=== PATIENT | male | born 1980 | race Caucasian/White ===

== ENCOUNTER 2020-09-01 10:34 | Emergency (ER) | payer SELFPAY ==
[2020-09-01] VITALS (11 sets, daily range): BP systolic 145–165; BP diastolic 90–107; PULSE 82–126; RESP 14–24; TEMP 36.8; O2SAT 93–95
--- NOTE | ~2020-09-01 | XR_ITS ---
XR chest 1V portable DATE: 09/01/2020 11:41 INDICATION: Shortness of breath TECHNIQUE: Portable upright AP views on September 01, 2020 at 1135 hours COMPARISON: None FINDINGS: Heart size appears normal. No pulmonary infiltrate or consolidation, pleural effusion or pu lmonary vascular congestion or pneumothorax is detected. IMPRESSION: No active cardiopulmonary disease Reviewed, dictated and finalized at location A. [facility] [employer]
--- NOTE | 2020-09-01 11:17 | ED.DIZZY ---
HPI - Dizziness General Chief Complaint: Dizziness Stated Complaint: DIZZINESS,N/V Time Seen by Provider: 09/01/20 11:03 Source: patient Mode of arrival: ambulatory Limitations: no limitations History of Present Illness HPI Narrative: 40-[facility] with complaints of dizziness, nausea and vomiting. He states shortly afterward he realized he has not been able to smell or taste anything. Patient denies any cough or shortness of breath. He states that the dizziness was like a sensation that he was spinning. He is unable to characterize which way. He states laying in the bed still now he feels only minimal symptoms. 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 Related Data Allergies Allergy/AdvReac Type Severity Reaction Status Date / Time aspirin Allergy Itching Verified 09/01/20 11:06 carbamazepine [From Tegretol] Allergy Swelling Verified 09/01/20 11:07 topiramate [From Topamax] Allergy Other Verified 09/01/20 11:07 Review of Systems Review of Systems: Narrative: CONSTITUTIONAL: Denies fever, chills, or sweats. EYES: Denies visual changes, redness, or discharge. ENT: Denies rhinorrhea, congestion, sore throat, or otalgia. CARDIOVASCULAR: Denies chest pain, palpitations, or edema. RESPIRATORY: Denies cough or dyspnea. GASTROINTESTINAL: Denies abdominal pain, nausea, vomiting, or diarrhea. GENITOURINARY: Denies dysuria or hematuria. SKIN: Denies rash or itching. MUSCULOSKELETAL: Denies back pain, joint pain, or myalgia. NEUROLOGIC: Denies headache, numbness, dizziness, or weakness. PSYCHIATRIC: Denies anxiety or depression. [facility] Social History Social History Smoking status: Current every day smoker Tobacco type: cigarettes Alcohol intake: current Substance use: never Exam Narrative: Exam Narrative: GENERAL: Well-appearing, well-nourished, and in no acute distress. Morbidly obese HEAD: Normocephalic, atraumatic. EYES: PERRLA and EOMI. ENT: Nares clear, no rhinorrhea or epistaxis. Mucous membranes moist. Oropharynx without tonsillar hypertrophy exudate or other lesions. Bilateral TMs pearly [place] nonbulging NECK: Supple. No adenopathy or masses. No carotid bruits or JVD CHEST: Clear to auscultation. No respiratory distress. No wheezes rales or rhonchi HEART: Regular rate and rhythm. No murmur heard. Normal peripheral pulses. ABDOMEN: Soft, nontender, nondistended, normal active bowel sounds. EXTREMITIES: Normal range of motion. No edema. SKIN: Warm, dry, no rash. NEURO: No focal deficits. Alert and oriented x3. PSYCH: Normal mood and affect. Course Reevaluation(s) Reevaluation #1: Reevaluated and provided care update. Patient was feeling better after IV fluids. I feel that his symptoms are likely secondary to dehydration secondary to undiagnosed diabetes. Patient does not show any signs of DKA at this time. He is from out of town. I did highly recommend the patient return to [place] and establish with a PCP there. Patient verbalizes understanding of the plan. Time: 14:35 Vital Signs Vital signs: Vital Signs Temperature 36.8 C 09/01/20 10:42 Pulse Rate 126 H 09/01/20 10:42 Respiratory Rate 20 09/01/20 10:42 Blood Pressure 163/99 H 09/01/20 10:42 Pulse Oximetry 95 09/01/20 10:42 Temperature 36.8 C 09/01/20 10:42 Pulse Rate 82 09/01/20 13:31 Respiratory Rate 17 09/01/20 13:30 Blood Pressure 165/107 H 09/01/20 13:31 Pulse Oximetry 93 09/01/20 13:31 MDM - Dizziness MDM Narrative Medical decision making narrative: In brief this is a 40-year-old male who came into the emergency department with complaints of dizziness and nausea and vomiting x1. Patient was worked up and evaluated. He was found to be hyperglycemic. Patient's A1c was found to be 10.7. He stated that he was not a diabetic and did not t
--- NOTE | 2020-09-01 11:24 | ECG_ITS ---
Measurements Intervals [place] Rate: 114 P: 56 NV: 163 QRS: 45 QRSD: 98 T: 52 QT: 324 QTc: 446 Interpretive Statements SINUS TACHYCARDIA LOW QRS VOLTAGE IN PRECORDIAL LEADS ABNORMAL ECG Electronically Signed On 09-01-2020 12:02:23 [employer] MACHINE OPERATOR by Sameer Cruz D.O.
[2020-09-01 11:32] LABS: Basophils Percent Auto 0.5 % (0.2-1.2); Eosinophils Absolute Auto 0.1 K/mm3 (0-0.3); Eosinophils Percent Auto 1.6 % (0-4.4); Hematocrit 47.5 % (42.0-52.0); Immature Granulocyte Absolute 0.05 K/mm3 (0.00-0.031); Immature Granulocyte Percent A 1.1 % (0-0.5); Lymphocytes Percent Auto 32.2 % (18.3-44.2); Mean Corpuscular HGB Conc 33.7 g/dl (32-36); Mean Corpuscular Hemoglobin 30.4 pg (26-34); Mean Corpuscular Volume 90.1 fl (80-100); Mean Platelet Volume 9.7 fl (7.4-10.4); Monocytes Absolute Auto 0.5 K/mm3 (0.1-0.6); Monocytes Percent Auto 10.6 % (2.6-8.5); Neutrophils Absolute Auto 2.4 K/mm3 (1.3-6.7); Platelet Count Result 178 k/mm3 (150-375); Red Blood Count 5.27 M/mm3 (4.6-6.20); Red Cell Distribution Width 13.2 % (11.5-14.5); White Blood Count 4.4 K/mm3 (4.5-10.0)
[2020-09-01] MEDS: ONDANSETRON INJ 4 MG/2 ML VIAL IV PUSH (11:42)
[2020-09-01] MEDS: LACTATED RINGERS 1,000 ML 999 ML IV CONT ×2 (11:42→13:03)
[2020-09-01 11:47] LABS: Alanine Aminotransferase 55 U/L (4-50); Albumin Level 3.4 g/dL (3.5-5.1); Alkaline Phosphatase 95 U/L (38-126); Anion Gap 4 mmol/L (8-16); Aspartate Amino Transferase 48 U/L (17-59); Bilirubin,Total 0.4 mg/dL (0.2-1.3); Blood Urea Nitrogen 16 mg/dL (9-20); Calcium 8.3 mg/dL (8.4-10.2); Carbon Dioxide 28 mmol/L (22-30); Chloride 105 mmol/L (98-107); Estimated CRCL calculation 352 ml/min; Estimated Glomerular Filt Rate > 60; Glucose 364 mg/dL (75-110); Lipase 63 U/L (23-300); Potassium 4.4 mmol/L (3.4-5.0); Sodium 137 mmol/L (137-145)
[2020-09-01 12:00] LABS: Add Urine Microscopic? YES; Appearance Urine Clear (Clear); Bilirubin Urine Negative (Negative); Blood Urine 1+ (Negative); Color Urine Yellow (Yellow); Glucose Urine UA 3+ mg/dL (Negative); Ketones Urine Trace mg/dL (Negative); Leukocyte Esterase Ur Trace LEU/UL (Negative); Mucus Urine Rare /lpf; Nitrate Urine Negative (Negative); Protein Urine Negative (Negative); RBC Urine 0-2 /hpf (0-2); Specific Grav Ur 1.037 (1.001-1.035); Squamous Epithelial Cell Urine Rare /hpf (Few); Urobilinogen Urine Negative mg/dL (<2.0)
[2020-09-01 12:01] LABS: Troponin I < 0.012 ng/mL (0.000-0.034)
[2020-09-01 12:12] LABS: Amphetamine Screen Urine Negative (Negative); Barbiturate Screen Urine Negative (Negative); Benzodiazepines Screen Urine Negative (Negative); Cannabinoid Screen Urine Negative (Negative); Cocaine Screen Urine Negative (Negative); Methadone Screen Urine Negative (Negative); Opiate Screen Urine Negative (Negative); Phencyclidine Screen Urine Negative (Negative)
[2020-09-01 12:48] LABS: Hemoglobin A1C 10.7 % (<5.7)
[2020-09-01 20:32] LABS: SARS-CoV-2 RNA PCR Positive
== END 2020-09-01 14:56 | disposition home or self-care (01) ==
PROVIDERS: Emergency Provider Emergency Medicine; Referring Provider Internal Medicine
DX: E86.0 Dehydration (principal); E11.9 Type 2 diabetes mellitus without complications; F17.210 Nicotine dependence, cigarettes, uncomplicated
CPT/HCPCS: 36415; 71045; 80053; 80307; 81001; 83036; 83690; 84484; 85025; 87086; 87088; 93005; 96361; 96374; 99284; C9803; J2405; J7120; U0003; U0005